=== PATIENT | female | born 1930 | race Caucasian/White ===

== ENCOUNTER → 2016-06-16 | Outpatient (CLI) | payer MEDICARE, MEDICAID ==
[~2016-06-16] MED LIST: ATIVAN0.5 MG PO; B-12; CELEXA10 MG PO; CENTRUM1 TA1 PO; CIPROFLOXACIN500 MG PO; CO Q-1010 MG PO; COQ1030 MG PO; COQ1060 MG PO; DIPHENHYDRAMINE25 M2 PO; GOOD NEIGHBOR L10 MG PO; IBUPROFEN100 M1 PO; LIDODERM 5% PATC1 EA T; LISINOPRIL10 MG PO; LISINOPRIL20 MG PO; MACROBID100 M1 PO; MULTI VITAMINS1 TAB PO; OMEGA 31000 MG PO; TRAMADOL HYDROC50 MG PO; VITAMIN B COMPL1 CA1 PO; WALKER; XANAX0.25 MG PO; ZYRTEC10 MG PO; [UNRECOGNIZED DRUG - OTHER] PO
[2016-06-16 09:31] LABS: HEMATOCRIT 39.8 % (37.0-47.0); HEMOGLOBIN 12.9 g/dl (12.0-16.0); MEAN CELL VOLUME 93.2 fl (81.0-99.0); MEAN CORPUSCULAR HGB 30.2 pg (27.0-31.0); MEAN CORPUSCULAR HGB CONC 32.4 g/dl (33.0-37.0); MEAN PLATELET VOLUME 10.8 fl (9.6-12.3); RED BLOOD COUNT 4.27 10*6/uL (4.10-5.10); RED CELL DISTRI WIDTH 13.2 % (0-14.5); WHITE BLOOD COUNT 5.7 10*3/uL (4.8-10.8)
[2016-06-16 09:56] LABS: ALBUMIN 3.7 gm/dl (3.1-4.5); ALKALINE PHOSPHATASE 66 U/L (45-117); BILIRUBIN, TOTAL 0.5 mg/dl (0.2-1.0); BUN 17 mg/dl (7-24); CARBON DIOXIDE 26 mmol/L (21-32); CHLORIDE 107 mmol/L (98-107); EST GLOM FILT AFRICAN AMERICAN > 60 ml/min; GLUCOSE 90 mg/dL (65-99); POTASSIUM 4.4 mmol/L (3.5-5.1); SGOT/AST 17 IU/L (3-35); SGPT/ALT 19 U/L (12-78); SODIUM 143 mmol/L (136-145); TOTAL PROTEIN 7.4 gm/dL (6.4-8.2)
[2016-06-16 10:04] LABS: THYROID STIM HORMONE (HS) 2.04 uIU/ml (0.358-4.75)
== END | disposition home or self-care (01) ==
LOC: LAB 08:46
PROVIDERS: Internal Medicine
DX: I10 Essential (primary) hypertension (principal); E55.9 Vitamin D deficiency, unspecified

== ENCOUNTER 2016-09-22 03:32 | Inpatient (IN) | payer MEDICARE, MEDICAID ==
[~2016-09-22] VITALS: Ht 160 cm; Wt 64.0 kg
[2016-09-22 03:34] VITALS: BP 167/71
[2016-09-22] MEDS ORDERED: ASCORBIC ACID500 M2 PO (04:04)
[2016-09-22] MEDS ORDERED: LISINOPRIL10 M1 PO (04:04)
[2016-09-22] MEDS ORDERED: IRON325 M2 PO (04:05)
[2016-09-22] MEDS ORDERED: COLACE100 MG PO (04:05)
[2016-09-22] MEDS ORDERED: ASPIRIN325 MG PO (04:06)
[2016-09-22] MEDS ORDERED: ALPRAZOLAM0.25 M2 PO (04:06)
[2016-09-22 04:07] LABS: BASO % 0.3 % (0.0-1.0); EOS # 0.1 10*3/uL (0.0-0.4); EOS % 0.7 % (1.0-4.0); HEMATOCRIT 26.3 % (37.0-47.0); HEMOGLOBIN 8.6 g/dl (12.0-16.0); IG # 0.1 10*3/uL (0.0-0.1); LYMPH # 0.7 10*3/uL (1.3-4.4); LYMPH % 9.6 % (27.0-41.0); MEAN CELL VOLUME 93.6 fl (81.0-99.0); MEAN CORPUSCULAR HGB 30.6 pg (27.0-31.0); MEAN CORPUSCULAR HGB CONC 32.7 g/dl (33.0-37.0); MEAN PLATELET VOLUME 9.9 fl (9.6-12.3); MONO # 0.6 10*3/uL (0.1-1.0); MONO % 9.3 % (3.0-9.0); NEUT # 5.4 10*3/uL (2.3-7.9); NEUT % 79.1 % (47.0-73.0); PLATELET COUNT AUTOMATED 185 10*3/uL (130-400); RED BLOOD COUNT 2.81 10*6/uL (4.10-5.10); RED CELL DISTRI WIDTH 13.1 % (0-14.5); WHITE BLOOD COUNT 6.9 10*3/uL (4.8-10.8)
[2016-09-22] MEDS ORDERED: TRAMADOL HCL50 MG PO (04:07)
[2016-09-22] MEDS ORDERED: TYLENOL EXTRA500 M2 PO (04:07)
[2016-09-22] MEDS ORDERED: CLARITIN10 MG PO (04:08)
[2016-09-22 04:25] LABS: ALBUMIN 2.2 gm/dl (3.1-4.5); ALKALINE PHOSPHATASE 65 U/L (45-117); BILIRUBIN, TOTAL 0.2 mg/dl (0.2-1.0); BUN 10 mg/dl (7-24); CARBON DIOXIDE 25 mmol/L (21-32); CHLORIDE 103 mmol/L (98-107); EST GLOM FILT AFRICAN AMERICAN > 60 ml/min; GLUCOSE 129 mg/dL (65-99); POTASSIUM 4.8 mmol/L (3.5-5.1); SGOT/AST 21 IU/L (3-35); SGPT/ALT 18 U/L (12-78); SODIUM 136 mmol/L (136-145); TOTAL PROTEIN 5.5 gm/dL (6.4-8.2)
[2016-09-22 04:26] LABS: TROPONIN I < 0.015 ng/ml (<0.045)
[2016-09-22 05:56] LABS: BILIRUBIN NEGATIVE (NEGATIVE); BLOOD NEGATIVE (NEGATIVE); CLARITY CLEAR (CLEAR); COLOR YELLOW (YELLOW); GLUCOSE NEGATIVE (NEGATIVE); KETONE NEGATIVE (NEGATIVE); LEUKO ESTERASE NEGATIVE (NEGATIVE); NITRITE NEGATIVE (NEGATIVE); PROTEIN NEGATIVE (NEGATIVE); SPECIFIC GRAVITY <= 1.005 (1.005-1.030); UROBILINOGEN 0.2 E.U./dl (0.2-1.0)
[2016-09-22 06:03] LABS: BACTERIA TRACE; URINE REFLEX COMMENT NO (NO)
[2016-09-22 06:39] VITALS: BP 151/63
[2016-09-22 07:32] VITALS: BP 180/72
[2016-09-22] MEDS ORDERED: FISH OIL 1,001000 MG PO (08:35)
[2016-09-22 12:00] VITALS: BP 130/52
[2016-09-22 16:00] VITALS: BP 168/56
[2016-09-22 20:00] VITALS: BP 109/58; BP 162/63
[2016-09-23] VITALS: BP 159/58
[2016-09-23 06:56] LABS: BASO % 0.4 % (0.0-1.0); EOS # 0.2 10*3/uL (0.0-0.4); EOS % 3.2 % (1.0-4.0); HEMOGLOBIN 7.8 g/dl (12.0-16.0); IG # 0.1 10*3/uL (0.0-0.1); LYMPH # 1.2 10*3/uL (1.3-4.4); LYMPH % 23.1 % (27.0-41.0); MEAN CELL VOLUME 93.4 fl (81.0-99.0); MEAN CORPUSCULAR HGB 30.4 pg (27.0-31.0); MEAN CORPUSCULAR HGB CONC 32.5 g/dl (33.0-37.0); MEAN PLATELET VOLUME 10.4 fl (9.6-12.3); MONO # 0.6 10*3/uL (0.1-1.0); MONO % 12.7 % (3.0-9.0); NEUT % 59.6 % (47.0-73.0); PLATELET COUNT AUTOMATED 206 10*3/uL (130-400); RED BLOOD COUNT 2.57 10*6/uL (4.10-5.10); RED CELL DISTRI WIDTH 13.3 % (0-14.5)
[2016-09-23 07:33] LABS: BUN 7 mg/dl (7-24); CARBON DIOXIDE 26 mmol/L (21-32); CHLORIDE 106 mmol/L (98-107); EST GLOM FILT AFRICAN AMERICAN > 60 ml/min; GLUCOSE 107 mg/dL (65-99); POTASSIUM 4.3 mmol/L (3.5-5.1); SODIUM 139 mmol/L (136-145)
[2016-09-23 08:00] VITALS: BP 124/54
[2016-09-23 12:00] VITALS: BP 144/65
[2016-09-23 16:00] VITALS: BP 133/52
== END 2016-09-23 19:38 | disposition other institution (70) | DRG 555 ==
LOC: ED 03:32 → 4E 06:09 → EDHOLD 06:09 → 4E 06:42
PROVIDERS: Emergency Medicine Emergency Medical Services; Hospitalist
DX: M25.551 Pain in right hip (principal); E43 Unspecified severe protein-calorie malnutrition; I10 Essential (primary) hypertension; F41.9 Anxiety disorder, unspecified; D64.9 Anemia, unspecified; R00.0 Tachycardia, unspecified; M17.10 Unilateral primary osteoarthritis, unspecified knee; Z68.24 Body mass index [BMI] 24.0-24.9, adult; Z79.1 Long term (current) use of non-steroidal anti-inflammatories (NSAID); Z79.899 Other long term (current) drug therapy; Z79.82 Long term (current) use of aspirin; Z98.49 Cataract extraction status, unspecified eye; Z96.641 Presence of right artificial hip joint

== ENCOUNTER → 2016-10-01 | Outpatient (CLI) | payer MEDICARE, MEDICAID ==
[~2016-10-01] MED LIST changes: +ALPRAZOLAM0.25 M2 PO; +ASCORBIC ACID500 M2 PO; +ASPIRIN325 MG PO; +CLARITIN10 MG PO; +COLACE100 MG PO; +FISH OIL 1,001000 MG PO; +IRON325 M2 PO; +LISINOPRIL10 M1 PO; +TRAMADOL HCL50 MG PO; +TYLENOL EXTRA500 M2 PO
[2016-10-01 17:45] LABS: BODY FLUID RBC 18000 /uL; BODY FLUID WBC 279 /uL
[2016-10-01 21:28] LABS: BF LYMPHOCYTES 91 %; BF MACROPHAGES 7 %; BF NEUTROPHILS 1 %
[2016-10-01 21:30] LABS: BODY FLUID TYPE SYNOVIAL
== END | disposition home or self-care (01) ==
LOC: LAB 14:13
PROVIDERS: Orthopaedic Surgery
DX: M25.451 Effusion, right hip (principal); Z96.641 Presence of right artificial hip joint

== ENCOUNTER → 2017-03-23 | Outpatient (CLI) | payer MEDICARE, MEDICAID ==
[2017-03-23 09:09] LABS: BASO % 0.7 % (0.0-1.0); EOS # 0.1 10*3/uL (0.0-0.4); EOS % 1.7 % (1.0-4.0); HEMATOCRIT 35.8 % (37.0-47.0); HEMOGLOBIN 11.8 g/dl (12.0-16.0); LYMPH # 1.4 10*3/uL (1.3-4.4); LYMPH % 34.4 % (27.0-41.0); MEAN CELL VOLUME 93.5 fl (81.0-99.0); MEAN CORPUSCULAR HGB 30.8 pg (27.0-31.0); MEAN PLATELET VOLUME 10.4 fl (9.6-12.3); MONO # 0.4 10*3/uL (0.1-1.0); MONO % 8.7 % (3.0-9.0); NEUT # 2.2 10*3/uL (2.3-7.9); PLATELET COUNT AUTOMATED 177 10*3/uL (130-400); RED BLOOD COUNT 3.83 10*6/uL (4.10-5.10); RED CELL DISTRI WIDTH 14.6 % (0-14.5); WHITE BLOOD COUNT 4.1 10*3/uL (4.8-10.8)
[2017-03-23 09:39] LABS: ALBUMIN 3.5 gm/dl (3.1-4.5); ALKALINE PHOSPHATASE 74 U/L (45-117); BUN 13 mg/dl (7-24); CHLORIDE 105 mmol/L (98-107); CREATININE 0.81 mg/dL (0.55-1.02); POTASSIUM 4.4 mmol/L (3.5-5.1); SGOT/AST 18 IU/L (3-35); SGPT/ALT 15 U/L (12-78); SODIUM 139 mmol/L (136-145); TOTAL PROTEIN 7.1 gm/dL (6.4-8.2)
== END | disposition home or self-care (01) ==
LOC: LAB 08:49
PROVIDERS: Internal Medicine
DX: I10 Essential (primary) hypertension (principal); E55.9 Vitamin D deficiency, unspecified

== ENCOUNTER 2017-03-31 14:52 | Inpatient (IN) | payer MEDICARE, MEDICAID ==
[~2017-03-31] VITALS: Ht 160 cm; Wt 56.5 kg
--- NOTE | ~2017-03-31 | O ---
[place], [place] OPERATIVE NOTE NAME: ELLEN PETERS [facility] #: [id number] UNIT #: [id number] ROOM: 407 DOCTOR: TESSY MORFIN DO BIRTHDATE: [birth year] DOS: 04/01/2017 PREOPERATIVE DIAGNOSIS: Left femoral neck fracture with displacement. POSTOPERATIVE DIAGNOSIS: Left femoral neck fracture with displacement. OPERATIVE PROCEDURE: Left femoral endoprosthesis. SURGEON: Tessy Morfin DO. FIRST ASSISTANTS: Nisha. SECOND CANDY CUTTER MACHINE: Elaine. ANESTHESIA: Miguel Angel, GERALD, Spinal. INDICATIONS: The patient is an 86-year-old female who states that she fell in her home. She states that she usually uses a walker, but was not using one at this time. The patient has a history of a right total hip replacement about 6 months ago. She states she also has significant back pain and was scheduled for epidurals of the spine in the near future. The patient was brought to the Emergency Room, x-rays were obtained, which indicated fracture of the left femoral neck with displacement and shortening. The risks and benefits of the procedure were explained to the patient and her family preoperatively. Preoperative labs and x-rays were obtained including preoperative medical optimization. PROCEDURE IN DETAIL: The left hip was marked in the holding area. The patient was taken to the operative suite. A spinal anesthetic was performed by Anesthesia. When this was adequate, the patient was placed in a lateral decubitus position with the left lower extremity elevated. Well padded peg board was utilized to aid in positioning. The bony prominences were padded, an axillary roll was placed. The patient received Ancef 2 grams IV piggyback. The left lower extremity was prepped and draped in the usual orthopedic manner. A posterior southern incision was planned and marked with a marking pen. The area was injected with Marcaine 0.25% with epinephrine. The incision was made sharply with a scalpel. Subcutaneous tissue was spread down to the level of the gluteus fascia. The gluteus fascia was divided along the fibers of the gluteus muscle. These were retracted. The piriformis and short external rotators were identified and tagged with a suture. These were released from their insertion and retracted posteriorly over the sciatic nerve. The capsule was identified and released in a T-shape fashion. The fracture was identified and an oscillating saw was used to make a calcar cut. A threaded Steinmann pin was used to remove the head of the femur. The attention was turned to the proximal femur and a straight handle awl was used to enter the lateral portion of the femoral neck and into the shaft. This was followed by placement of a box osteotome to aid in lateralizing the broaches. The initial broach was placed and increased from a size 9 to a size 12. The size 12 was noted to have a good [place], [place] OPERATIVE NOTE NAME: ELLEN PETERS UNIT #: [id number] ROOM: [facility] DOCTOR: TESSY MORFIN DO BIRTHDATE: [birth year] fit and fill as well as stability. Trial head and neck combinations were performed off of the trial femoral stem. It was determined that the 45 mm outer diameter bipolar cup with a +0 neck length was able to provide the best stability and range of motion. All the trials were removed. The area was copiously irrigated with normal saline. The acetabulum was evaluated and the femoral prosthetic stem was pressfit into place. This was followed by placement of a bipolar head with a 45 mm outer diameter, a 28 mm inner diameter and a +0 mm neck length. This was cold welded into place. A reduction of the femoral head into the acetabulum was performed. The extremity was taken through a range of motion with flexion past 90 and internal and external rotation as well as shucking. There appeared to be good range of motion and stability at the left hip. The area was again irrigated with normal saline and closed in a layered fashion with 0 Vicryl for the short external rotators, followed by 0 Vicryl for the gluteus fascia, 2-0 Vicryl for the adipose layer and skin andrea. The incision was again injected with Marcaine 0.25% with epinephrine. The dressing was completed with Xeroform, 4 x 4's, ABDs and Tegaderm. An abduction pillow was put into place. The patient was returned to a supine position and taken to the recovery room in satisfactory condition. COUNTS: Sponge and needle count correct. ESTIMATED BLOOD LOSS: 200 mL. DRAINS: None. PACKING: None. SPECIMENS: Femoral head and soft tissue were sent to lab for further study. IMPLANTS: Mary VerSys system, size 12 collared femoral stem, femoral head 28 mm diameter, +0 mm neck length, bipolar cup with a liner 28 mm inner diameter, 45 mm outer diameter. FINDINGS: Fracture of the left femoral neck with displacement. [place], [place] OPERATIVE NOTE NAME: ELLEN PETERS UNIT #: [id number] ROOM: [facility] DOCTOR: TESSY MORFIN DO BIRTHDATE: [birth year] TESSY MORFIN DO CM:OPRECORD:OPERATIVE NOTE 53 [id number] TESSY MORFIN DO 04/02/172054 interface
[2017-03-31 15:02] VITALS: BP 136/73
[2017-03-31] MEDS ORDERED: ASPIRIN ADULT L81 M1 PO (15:16)
[2017-03-31] MEDS ORDERED: LEXAPRO10 MG PO (15:17)
--- NOTE | 2017-03-31 15:30 | NUR ---
OFF UNIT TO XRAY. CONDITION STABLE. ANXIETY NOTED.
[2017-03-31 16:26] LABS: BASO % 0.5 % (0.0-1.0); EOS # 0.1 10*3/uL (0.0-0.4); EOS % 1.4 % (1.0-4.0); HEMATOCRIT 36.2 % (37.0-47.0); LYMPH # 1.3 10*3/uL (1.3-4.4); LYMPH % 21.9 % (27.0-41.0); MEAN CELL VOLUME 91.6 fl (81.0-99.0); MEAN CORPUSCULAR HGB 30.4 pg (27.0-31.0); MEAN CORPUSCULAR HGB CONC 33.1 g/dl (33.0-37.0); MEAN PLATELET VOLUME 10.4 fl (9.6-12.3); MONO # 0.4 10*3/uL (0.1-1.0); MONO % 7.5 % (3.0-9.0); NEUT # 3.9 10*3/uL (2.3-7.9); NEUT % 68.2 % (47.0-73.0); PLATELET COUNT AUTOMATED 185 10*3/uL (130-400); RED BLOOD COUNT 3.95 10*6/uL (4.10-5.10); RED CELL DISTRI WIDTH 13.9 % (0-14.5); WHITE BLOOD COUNT 5.8 10*3/uL (4.8-10.8)
[2017-03-31 16:36] LABS: BUN 12 mg/dl (7-24); CHLORIDE 103 mmol/L (98-107); CREATININE 0.77 mg/dL (0.55-1.02); POTASSIUM 4.4 mmol/L (3.5-5.1); SODIUM 137 mmol/L (136-145)
[2017-03-31 16:40] VITALS: BP 137/71
[2017-03-31 16:42] LABS: ACT PARTIAL THROMBO TIME 23.7 SECONDS (20.8-31.5)
[2017-03-31 17:00] VITALS: BP 91/50
--- NOTE | 2017-03-31 17:00 | NUR ---
PT HAD BEEN MEDICATED WITH MORPHINE 1 HR AGO IN ER, PT RATES HER PAIN 8/10 INTERMITTENT WITH MOVEMENT.
[2017-03-31 17:39] VITALS: BP 91/50
--- NOTE | 2017-03-31 17:59 | NUR ---
A 86, admitted to , under the services of LINH Aparicio DO with a diagnosis of LEFT HIP FRACTURE. Chief complaint is PAIN, FALLS. Patient arrived via bed from ER. Monitor applied. Initial assessment completed. Vital signs taken and recorded. LINH APARICIO DO notified of admission to the unit. Orders received. See assessment for past medical history, medications and allergies. Patient and/or family oriented to unit. [facility] visitation policy reviewed. Clothing/patient valuable form completed. TANIA NEGRON
--- NOTE | 2017-03-31 18:21 | NUR ---
MEDICATED PT WITH PERCOCET FOR PAIN 01/23.
--- NOTE | 2017-03-31 19:21 | NUR ---
PRN PAIN MED MINIMALLY EFFECTIVE, PT RATES HER PAIN 6/10 WITH MOVEMENT.
[2017-03-31 20:00] VITALS: BP 151/63
--- NOTE | 2017-03-31 20:05 | NUR ---
PT RESTING QUIETLY IN BED. DENIES PAIN WHILE LYING STILL. DAUGHTER AT BEDSIDE.
--- NOTE | 2017-03-31 22:30 | NUR ---
PT C/O NAUSEA/PAIN. MEDICATED WITH PRN ZOFRAN/MORPHINE SULFATE IVP. ICE APPLIED TO LEFT HIP. PT REPOSITIONED FOR COMFORT. PT OFFERED AND ACCEPTED SNACK OF ICECREAM. WILL CONT. TO MONITOR.
--- NOTE | 2017-03-31 23:00 | NUR ---
PT RESTING QUIETLY IN BED. NO S/S OF DISTRESS NOTED.
[2017-04-01] VITALS (11 sets, daily range): BP systolic 132–160; BP diastolic 55–75
[2017-04-01 06:21] LABS: BASO % 0.3 % (0.0-1.0); EOS % 0.3 % (1.0-4.0); HEMATOCRIT 33.2 % (37.0-47.0); HEMOGLOBIN 11.1 g/dl (12.0-16.0); LYMPH # 1.1 10*3/uL (1.3-4.4); LYMPH % 14.3 % (27.0-41.0); MEAN CELL VOLUME 92.5 fl (81.0-99.0); MEAN CORPUSCULAR HGB 30.9 pg (27.0-31.0); MEAN CORPUSCULAR HGB CONC 33.4 g/dl (33.0-37.0); MONO # 0.6 10*3/uL (0.1-1.0); MONO % 7.6 % (3.0-9.0); NEUT % 77.2 % (47.0-73.0); PLATELET COUNT AUTOMATED 159 10*3/uL (130-400); RED BLOOD COUNT 3.59 10*6/uL (4.10-5.10); RED CELL DISTRI WIDTH 13.5 % (0-14.5); WHITE BLOOD COUNT 7.8 10*3/uL (4.8-10.8)
[2017-04-01 06:47] LABS: ALKALINE PHOSPHATASE 65 U/L (45-117); BUN 13 mg/dl (7-24); CHLORIDE 98 mmol/L (98-107); CHOLESTEROL 194 mg/dL (<200); CREATININE 0.72 mg/dL (0.55-1.02); HDL CHOLESTEROL 81 mg/dl (40-60); LDL CHOLESTEROL 104 mg/dL (9-159); PHOSPHOROUS 3.6 mg/dL (2.5-4.9); POTASSIUM 4.4 mmol/L (3.5-5.1); SGOT/AST 15 IU/L (3-35); SGPT/ALT 16 U/L (12-78); SODIUM 133 mmol/L (136-145); TOTAL PROTEIN 6.1 gm/dL (6.4-8.2); TRIGLYCERIDES 45 mg/dl (<150); VLDL CHOLESTEROL 9 mg/dL (6-40)
[2017-04-01 07:26] LABS: VITAMIN D, 25-HYDROXY 36.1 ng/mL (30-100)
--- NOTE | 2017-04-01 07:41 | NUR ---
DR. WESLEY CALLED FOR REPORT ON PT. ORDERED D5 1/2 NS AT THIS TIME.
--- NOTE | 2017-04-01 07:52 | NUR ---
DR. YEN NOTIFIED ON SEEING PT BEFORE TAKEN DOWN TO SURGERY REQUESTED BY DR. WESLEY.
--- NOTE | 2017-04-01 09:00 | NUR ---
Radioactivity Technician in to talk to patient. Patient states lives at home with alone. There are few steps in the home. Physician: oren mayfield Pharmacy: Home health services: none Patient's level of ADLs: MINIMAL ASSIST Patient has working utilities: all working DME: walker Follow-up physician's appointment after d/c: will be made by hospitalist nurse director upon discharge Does patient want to access PORTAL?: no Discharge plan discussed with patient, daughter present, patient had been living at home alone, she was using a walker at home and getting around fine until her fall. discussed with patient and daughter a short term jail and both were in agreement, patient stated that she had been at [facility] previously and would like to return, media planner / buyer will make referral to [facility]. patient will need a three night stay to qualify for SNF. [employer]
--- NOTE | 2017-04-01 11:30 | NUR ---
PT GIVEN MORPHINE PRN FOR PAIN. MEDICATION EFFECTIVE. WILL CONTINUE TO MONITOR PT.
--- NOTE | 2017-04-01 14:45 | NUR ---
PT TAKEN OFF FLOOR TO SURGERY.
--- NOTE | 2017-04-01 15:15 | NUR ---
PHYSICAL THERAPY Awaiting ortho orders prior to initiating PT. Thank you for this referral. Aida Packer,PT
--- NOTE | 2017-04-01 20:00 | NUR ---
ATTEMPTED I/S WITH PT. NOT UNDERSTANDING VERY WELL CHECK ON PT. IN AM AND TRY INSTRUCTING PT. AGAIN.
--- NOTE | 2017-04-01 22:00 | NUR ---
PT EDUCATED ON INCENTIVE SPIROMETER USE. PT DENIES ANY DISCOMFORT AT PRESENT. CALL LIGHT IN REACH. DRSG TO LEFT HIP DRY AND INTACT.
[2017-04-02] VITALS: BP 124/50
[2017-04-02 06:10] LABS: BASO % 0.5 % (0.0-1.0); EOS # 0.1 10*3/uL (0.0-0.4); EOS % 0.9 % (1.0-4.0); HEMATOCRIT 28.8 % (37.0-47.0); HEMOGLOBIN 9.7 g/dl (12.0-16.0); LYMPH # 1.2 10*3/uL (1.3-4.4); LYMPH % 18.3 % (27.0-41.0); MEAN CORPUSCULAR HGB CONC 33.7 g/dl (33.0-37.0); MEAN PLATELET VOLUME 11.1 fl (9.6-12.3); MONO # 0.7 10*3/uL (0.1-1.0); MONO % 10.1 % (3.0-9.0); NEUT # 4.5 10*3/uL (2.3-7.9); NEUT % 69.6 % (47.0-73.0); PLATELET COUNT AUTOMATED 131 10*3/uL (130-400); RED BLOOD COUNT 3.13 10*6/uL (4.10-5.10); RED CELL DISTRI WIDTH 13.6 % (0-14.5); WHITE BLOOD COUNT 6.5 10*3/uL (4.8-10.8)
--- NOTE | 2017-04-02 06:11 | NUR ---
PT YELLING OUT "GOD HELP ME" CONTINUOUSLY. PT SITTING UP IN BED. COMFORT AND 1:1 GIVEN. PT MEDICATED WITH PRN DILAUDID FOR C/O BLE PAIN. ATTEMPTED TO REPOSITION. PT REFUSING. FLUIDS OFFERED AND ACCEPTED. PT STATES SHE FEELS ANXIOUS. ENCOURAGED PT TO DEEP BREATH AND RELAX. INTERVENTIONS AND PAIN MED EFFECTIVE. PT RESTING QUIETLY IN BED AT THIS TIME.
[2017-04-02 06:35] LABS: BUN 11 mg/dl (7-24); CHLORIDE 100 mmol/L (98-107); CREATININE 0.78 mg/dL (0.55-1.02); POTASSIUM 4.3 mmol/L (3.5-5.1); SODIUM 133 mmol/L (136-145)
--- NOTE | 2017-04-02 07:55 | NUR ---
PHYSICAL THERAPY Call placed to Dr Vega office to request PT/OT orders and weigth bearing status in order to proceed. Thank you . Aida Packer,PT
[2017-04-02 08:00] VITALS: BP 106/48
--- NOTE | 2017-04-02 09:35 | NUR ---
PHYSICAL THERAPY PAtient in very deep sleep and recently medicated with decreased rest throughout last night per staff. Will check on patient and intiate later this am. Thank you for this referral. Aida Packer,PT
--- NOTE | 2017-04-02 11:23 | NUR ---
PHYSICAL THERAPY PAtient evaluated on 4, full evaluation to follow. Continue with PT as per plan of care with fall, left bipolar hemiarthroplasty, L CRISELDA precautions, WBAT, bed alarm, mod (A) x 2 and possible new onset foot drop left LE ( Dr. Vega office notified of finding at evaluation, nurse also educated) precautions. Will require SNF for impairded mobility as patient was home alone prior. PAtient is high complexity via chart review, tests and evaluation: 44212. Thank you for this referral. Aida Packer,PT
--- NOTE | 2017-04-02 11:58 | NUR ---
Occupational Therapy evaluation completed this date on 4 with full eval to follow. PRecautions include WBAT LLE, LLE CRISELDA precautions, abd wedge, high complexity level 98231, fall risk, cardenas, lethargy. Recommend OT per POC and SNF upon d/c. Thank you for this referral. Brandy Cordova OTR/L
[2017-04-02 12:00] VITALS: BP 112/50
--- NOTE | 2017-04-02 12:22 | NUR ---
PHYSICAL THERAPY Anabelle seen this PM 1:1 for her physical therapy session. Pt a left bipolar hemiarthroplasty and is WBAT. May have drop foot on left ? Pt with impaired mobility. Transfer supine/sit MOD A X 1, sitting balance once up CG X 1, X 7 min with act LAQ's. Sit/stand and standing balance MOD A X 1, X 3, with sitting rest after each stand. Followede by gait forward and back X 2, one sitting rest with MOD/MAX A X 1 with WBAT. Pt back supine in bed, call light bed alarm on and ABD wedge in. Will try and work in wheeled walker tomorrow LEONIDES RENEE PBX MECHANIC.
--- NOTE | 2017-04-02 13:13 | NUR ---
Patient asked to be referred to [facility], contacted [facility] and faxed all clinicals for referral. Patient will require 3 night stay if accepted.
[2017-04-02 16:00] VITALS: BP 140/60
--- NOTE | 2017-04-02 17:53 | NUR ---
Pt medicated for pain/routine as requested. Resp easy and regular. Hip immobilizer in place. Verbalized relief. Alert and oriented. No acute distress noted @ this time.
[2017-04-02 20:00] VITALS: BP 124/44
--- NOTE | 2017-04-02 20:30 | NUR ---
PT USED IS DEVICE WHILE THIS NURSE IN ROOM. FAMILY AT BEDSIDE. PATIENT TAUGHT AGAIN OW TO PROPERLY USE AND ENCOURAGED TO USE EVERY HOUR WHILE AWAKE TO PREVENT PNEUMONIA.
--- NOTE | 2017-04-02 21:00 | NUR ---
PATIENT AT THIS TIME REQUESTED HEEL PROTECTORS BE REMOVED. THIS NURSE STATES SHE WILL BE BACK IN A COUPLE HOURS TO REAPPLY
[2017-04-03] VITALS: BP 127/48
--- NOTE | 2017-04-03 00:55 | NUR ---
PATIENT AT THIS TIME STATES HER LEGS FEEL BETTER WITHOUT HEEL PROTECTORS AND WOULD LIKE TO LEAVE THEM OFF
--- NOTE | 2017-04-03 03:10 | NUR ---
24 HR chart check completed.
[2017-04-03 06:16] LABS: BASO % 0.2 % (0.0-1.0); EOS # 0.1 10*3/uL (0.0-0.4); EOS % 1.2 % (1.0-4.0); HEMATOCRIT 28.3 % (37.0-47.0); HEMOGLOBIN 9.4 g/dl (12.0-16.0); LYMPH # 0.9 10*3/uL (1.3-4.4); LYMPH % 13.5 % (27.0-41.0); MEAN CELL VOLUME 91.6 fl (81.0-99.0); MEAN CORPUSCULAR HGB 30.4 pg (27.0-31.0); MEAN CORPUSCULAR HGB CONC 33.2 g/dl (33.0-37.0); MEAN PLATELET VOLUME 11.4 fl (9.6-12.3); MONO # 0.6 10*3/uL (0.1-1.0); MONO % 8.5 % (3.0-9.0); NEUT # 4.9 10*3/uL (2.3-7.9); NEUT % 76.3 % (47.0-73.0); PLATELET COUNT AUTOMATED 132 10*3/uL (130-400); RED BLOOD COUNT 3.09 10*6/uL (4.10-5.10); RED CELL DISTRI WIDTH 13.6 % (0-14.5); WHITE BLOOD COUNT 6.5 10*3/uL (4.8-10.8)
--- NOTE | 2017-04-03 06:45 | NUR ---
LOPEZ DISCONTINUED PER ORDER AFTER BALLOON DEFLATED 9CC. PT. TOLERATED WELL. EMPTIED 50ML YELLOW URINE.
[2017-04-03 07:04] LABS: BUN 15 mg/dl (7-24); CHLORIDE 96 mmol/L (98-107); CREATININE 0.77 mg/dL (0.55-1.02); POTASSIUM 3.8 mmol/L (3.5-5.1); SODIUM 130 mmol/L (136-145)
--- NOTE | 2017-04-03 07:33 | NUR ---
DR. YEN NOTIFIED THAT PATIENTS MEDICATION VERIFIED WITH NIECE AND NEED CONTINUED. DR. YEN STATED THEY WILL CONTINUE THEM
--- NOTE | 2017-04-03 07:44 | NUR ---
NOTIFIED OF NA & CL LEVELS
[2017-04-03 08:00] VITALS: BP 116/64
--- NOTE | 2017-04-03 08:04 | NUR ---
PT GIVEN PERCOCET FOR PAIN LEVEL OF 5/10 AND PRIOR TO PT SESSION.
--- NOTE | 2017-04-03 08:18 | NUR ---
Patient accepted to [facility], hospital exemption completed online in [facility]. required 3 night stay completed, patient can go today 04/03/17 if medically stable for discharge.
--- NOTE | 2017-04-03 09:17 | NUR ---
PT STATES PAIN LEVEL REDUCED TO 3/10, WAS UP IN CHAIR AFTER PT.
--- NOTE | 2017-04-03 09:45 | NUR ---
PHYSICAL THERAPY Anabelle seen this AM 1:1 for her therapy session and doing a little better then yesterday. Transfer supine/sit MOD A X 1, sitting balance CG X 1, X 7 min, with left LE, knee flexion into pain tolerance with act LAQ's. SIt/stand and up on wheeled walker standing balance MOD A X 1. Then gait total 17' X 1, W/W and MOD GUN STOCK CHECKER X 1, with verbal cueing for gait, walker and WBAT left LE and working throught her pain with her gait. Pt up in her bedside chair, call light and phone with no new complaints. LEONIDES RENEE DOBIE WORKER.
--- NOTE | 2017-04-03 11:56 | NUR ---
PHYSICAL THERAPY Anabelle was seen this PM 1:1 for her therapy session, Pt was up in her bedside chair. Start with rom to left LE , hip, and ankle PF/DF with some improvement in PF/DF and improvement in her pain. Transfer sit/stand and standing balance with wheeled walker MOD A X 1, with weight shift. Then hait total 85' X 1, MOD THERMOMETER PRODUCTION WORKER X 1, with W/W and verbal cueing for gait, walker, turn safety no LOB. Pt back up in her chair for her lunch then going back to bed. LEONIDES RENEE NURSE.
[2017-04-03 12:00] VITALS: BP 122/64
[2017-04-03 14:36] LABS: URINE CHLORIDE, RANDOM < 10 mmol/L
[2017-04-03 16:00] VITALS: BP 147/56
[2017-04-03 20:00] VITALS: BP 158/58
--- NOTE | 2017-04-03 21:08 | NUR ---
PRN PERCOCET GIVEN FOR PT COMPLAINTS OF PAIN UNABLE TO RATE IN THE LEFT HIP. CALL LIGHT WITHIN REACH, WILL MONITOR
--- NOTE | 2017-04-03 22:30 | NUR ---
PRN MEDICATION APPEARS EFFECTIVE, PT SLEEPING
[2017-04-04] VITALS: BP 120/43
[2017-04-04 06:13] LABS: BASO % 0.2 % (0.0-1.0); EOS # 0.1 10*3/uL (0.0-0.4); EOS % 2.2 % (1.0-4.0); HEMATOCRIT 25.9 % (37.0-47.0); HEMOGLOBIN 8.8 g/dl (12.0-16.0); LYMPH # 0.9 10*3/uL (1.3-4.4); LYMPH % 16.7 % (27.0-41.0); MEAN CELL VOLUME 90.2 fl (81.0-99.0); MEAN CORPUSCULAR HGB 30.7 pg (27.0-31.0); MEAN PLATELET VOLUME 11.2 fl (9.6-12.3); MONO # 0.5 10*3/uL (0.1-1.0); MONO % 9.1 % (3.0-9.0); NEUT % 71.6 % (47.0-73.0); PLATELET COUNT AUTOMATED 141 10*3/uL (130-400); RED BLOOD COUNT 2.87 10*6/uL (4.10-5.10); RED CELL DISTRI WIDTH 13.2 % (0-14.5); WHITE BLOOD COUNT 5.6 10*3/uL (4.8-10.8)
--- NOTE | 2017-04-04 06:27 | NUR ---
PATIENT AT THIS TIME STATES THAT SHE DOES NOT WANT TO GET UP IN THE CHAIR FOR BREAKFAST AND WOULD LIKE TO GET UP LATER
[2017-04-04 06:37] LABS: BUN 11 mg/dl (7-24); CHLORIDE 98 mmol/L (98-107); CREATININE 0.65 mg/dL (0.55-1.02); POTASSIUM 3.7 mmol/L (3.5-5.1); SODIUM 131 mmol/L (136-145)
[2017-04-04 08:00] VITALS: BP 118/50
--- NOTE | 2017-04-04 09:17 | NUR ---
PHYSICAL THERAPY Anabelle seen this AM 1:1 for her therapy session. Transfer supine/sit MOD A X 1, sitting balance CG X 1, X 5 min, working in act LAQ's, Pt still has left drop foot. Sit/stand and standing balance MOD A X 1. Followed by gait 85' X 1, W/W and MOD PSYCHOLOGY LECTURER X 1, with verbal cueing for gait, walker, turn safety and working on heel strike, toe off. Pt up in her bedside chair for marching, LAQ's, and what ankle pumps she could do, right was fine. Pt with call light and phone and is improving. LEONIDES RENEE POCKETS AND PIECES NECKTIE OPERATOR.
--- NOTE | 2017-04-04 09:21 | NUR ---
Patient can be discharged to [facility] today if stable
[2017-04-04 12:00] VITALS: BP 110/52; BP 116/52
--- NOTE | 2017-04-04 12:02 | NUR ---
PATIENT SEEN 1:1 THIS DATE 28 MINUTES. IDENTIFIED PATIENT BY NAME AND DATE OF . PATIENT SEATED ON BEDSIDE COMMODE THIS DATE. COMPLETED SIT TO STAND FROM TOILETING MIN A AND AMBULATING USE FWW TO BED SHORT DISTANCE MIN A X 2 WITH MOD VERBAL CUES SAFETY HIP PRECAUTIONS. PATIENT COMPLETED F/F+ SIT BALANCE EOB WHILE COMPLETING BUE AROM ALL PLANES X 20 REPS WITH VERBAL CUES TECH/FORM. PATIENT REQUESTED TO LIE DOWN IN BED MOD A SIT TO SUPINE WITH VERBAL CUES SAFETY PRECAUTIONS. PATIENT UNABLE TO RECALL HIP PRECAUTIONS WITH EDUCATION COMPLETED. PATIENT IN BED WITH ABD WEDGE IN PLACE, HEEL GUARDS, AND CALL LIGHT WITHIN REACH. KT LAGOS/Zelda
--- NOTE | 2017-04-04 12:52 | NUR ---
PHYSICAL THERAPY Anabelle transfer supine/sit MOD A X 1, sitting balance supervision X 1, once up X 7 min with act LAQ's left LE with cueing and improving. Sit/stand and up on wheeled walker standing balance and weight shift MOD A X 1. Followed by gait with W/W 90' X 2, MOD A X 1, with cueing for gait, walker step through and is improving with her therapy. Pt up in her bedside chair, call light and her lunch in at this time. LEONIDES RENEE FIREWORKS DISPLAY SPECIALIST.
[2017-04-04] MEDS ORDERED: ENOXAPARIN30 MG/0.2 SC (13:46)
[2017-04-04] MEDS ORDERED: SODIUM CHLORIDE1 GM PO (13:46)
[2017-04-04] MEDS ORDERED: ALPRAZOLAM0.25 M2 PO (13:46)
[2017-04-04] MEDS ORDERED: Percocet 325 MG1 TAB PO (13:46)
--- NOTE | 2017-04-04 14:10 | NUR ---
PHYSICAL THERAPY CO-SIGN I approve of the Phyical Therapy notes written above. CARSON DILLON PT
--- NOTE | 2017-04-04 14:41 | NUR ---
Patient is being discharged to [facility], transportation scheduled for 3:30 pm with [facility], half-way and nursing notified.
--- NOTE | 2017-04-04 15:42 | NUR ---
Discharge instructions reviewed with patient/family. Patient receptive and verbalizes understanding. Follow-up care arranged. Written instructions given to patient/family. PATIENT TAKEN BY [facility] TO [facility]. REPORT GIVEN TO RECEIVING NURSE. HEPLOCK REMOVED. DRESSING CHANGED TO LEFT HIP. ABDUCTOR PILLOW SENT ALONG WITH PATIENT WITH DENTURES AND OTHER BELONGINGS. DIANA LEON
--- NOTE | 2017-04-07 08:26 | NUR ---
OCCUPATIONAL THERAPY CO-SIGN I approve of the Occupational Therapy notes written above. DANIEL FREGOSO OTR/Zelda
== END 2017-04-04 15:42 | disposition other institution (70) | DRG 470 ==
LOC: ED 14:52 → EDHOLD 16:10 → 4E 16:10
PROVIDERS: Emergency Medicine; Internal Medicine; ADMIT Internal Medicine
PROC: 0SRS0JZ Replacement of Left Hip Joint, Femoral Surface with Synthetic Substitute, Open Approach (ICD-10-PCS; principal; 2017-04-01)
DX: S72.142A Displaced intertrochanteric fracture of left femur, initial encounter for closed fracture (principal); E44.0 Moderate protein-calorie malnutrition; E87.1 Hypo-osmolality and hyponatremia; Z96.641 Presence of right artificial hip joint; S72.102A Unspecified trochanteric fracture of left femur, initial encounter for closed fracture; D72.810 Lymphocytopenia; I10 Essential (primary) hypertension; J30.2 Other seasonal allergic rhinitis; M21.10 Varus deformity, not elsewhere classified, unspecified site; F41.9 Anxiety disorder, unspecified; M17.0 Bilateral primary osteoarthritis of knee; Z68.22 Body mass index [BMI] 22.0-22.9, adult; M48.07 Spinal stenosis, lumbosacral region; W18.39XA Other fall on same level, initial encounter; M54.5 Low back pain; Z79.82 Long term (current) use of aspirin; Z79.899 Other long term (current) drug therapy; Z98.41 Cataract extraction status, right eye; Z98.42 Cataract extraction status, left eye; Z82.49 Family history of ischemic heart disease and other diseases of the circulatory system; Z83.3 Family history of diabetes mellitus; Z82.0 Family history of epilepsy and other diseases of the nervous system; Y93.89 Activity, other specified; Y92.89 Other specified places as the place of occurrence of the external cause; Y99.8 Other external cause status

== ENCOUNTER → 2017-05-23 | Outpatient (CLI) | payer MEDICARE, MEDICAID ==
[~2017-05-23] MED LIST changes: +ASPIRIN ADULT L81 M1 PO; +ENOXAPARIN30 MG/0.2 SC; +LEXAPRO10 MG PO; +Percocet 325 MG1 TAB PO; +SODIUM CHLORIDE1 GM PO
== END | disposition home or self-care (01) ==
LOC: ORTHO 01:12
DX: S72.002D Fracture of unspecified part of neck of left femur, subsequent encounter for closed fracture with routine healing (principal); Z96.642 Presence of left artificial hip joint; X58.XXXD Exposure to other specified factors, subsequent encounter

== ENCOUNTER → 2017-09-09 | Outpatient (CLI) | payer MEDICARE, MEDICAID | END | disposition home or self-care (01) | LOC: ORTHO 03:50 | DX: S72.002D Fracture of unspecified part of neck of left femur, subsequent encounter for closed fracture with routine healing (principal); X58.XXXD Exposure to other specified factors, subsequent encounter ==

== ENCOUNTER → 2018-04-08 | Outpatient (CLI) | payer MEDICARE, MEDICAID | END | disposition home or self-care (01) | LOC: ORTHO 00:58 | DX: Z47.1 Aftercare following joint replacement surgery (principal); S72.002D Fracture of unspecified part of neck of left femur, subsequent encounter for closed fracture with routine healing; E55.9 Vitamin D deficiency, unspecified; I10 Essential (primary) hypertension; X58.XXXD Exposure to other specified factors, subsequent encounter ==